=== PATIENT | female | born 1965 | race American Indian/Alaskan Native ===

== ENCOUNTER 2020-05-27 13:07 | Outpatient (CLI) | payer BC ==
--- NOTE | 2020-05-27 16:01 | XRay Report ---
CHEST 2 VIEWS INDICATION: ASTHMA. COMPARISON: 01/29/2015. FINDINGS: Support devices: None. Heart: Within normal limits. Lungs/Pleura: No acute air space or interstitial disease. No significant pleural effusion. IMPRESSION: No acute findings. Signer Name: Jere Bacon MD Signed: 05/27/2020 3:57 PM Workstation Name: [id number]
--- NOTE | 2020-05-28 10:29 | Mammography Report ---
DIGITAL SCREENING MAMMOGRAM WITH CAD, 05/27/2020 INDICATION: Routine screening mammography. TECHNIQUE: Digital bilateral 2D mammography was obtained in the craniocaudal and mediolateral obliq ue projections. This examination was interpreted with the benefit of Computer-Aided Detection analysi s. COMPARISON: None. FINDINGS: Breast Density: The breasts are heterogeneously dense, which may obscure small masses. There is no evidence of dominant mass, suspicious calcifications or architectural distortion in eithe r breast. IMPRESSION: Follow up recommendation: Routine yearly BI-RADS Category 1: Negative. A "normal" or negative report should not discourage follow up or biopsy of a clinically significant f inding. A written summary of these findings will be mailed to the patient. The patient will be entered into a mammography reporting system which will generate a reminder letter for the patient's next appointmen t at the appropriate interval. The [employer] recommends yearly mammograms starting at age 40 and continuing as l chapin as a woman is in good health. Breast MRI is recommended for women with an approximate 20-25% or greater lifetime risk of breast cancer, including women with a strong family history of breast or ova naveed cancer or who have been treated for Hodgkin's disease. Signer Name: Jere Bacon MD Signed: 05/28/2020 10:24 AM Workstation Name: [id number]
== END 2020-05-27 13:08 | disposition home or self-care (01) ==
LOC: MAMMO 13:07
DX: Z12.31 Encounter for screening mammogram for malignant neoplasm of breast (principal); J45.20 Mild intermittent asthma, uncomplicated
CPT/HCPCS: 71046; 77067

== ENCOUNTER 2021-09-30 19:01 | Observation (INO) | payer BC ==
[2021-09-30] MEDS ORDERED: ALBUTEROL 2.5 MG/3 ML NEBU IH ONE ×2 (19:28→19:29)
[2021-09-30] MEDS ORDERED: IPRATROPIUM 0.02% NEBU 2.5 ML IH ONE (19:28)
[2021-09-30] MEDS ORDERED: dexAMETHasone 20 MG/5 ML VIAL IV ONE (19:28)
[2021-09-30] MEDS ORDERED: MAGNESIUM SULFATE 2 GM/50 ML BAG IV ONE (19:28)
[2021-09-30 19:49] LABS: Basophils # (Auto) 0.1 K/mm3 (0.0-0.1); Eosinophils # (Auto) 0.4 K/mm3 (0.0-0.4); Eosinophils % (Auto) 5.2 % (0.0-4.3); Hematocrit 39.1 % (30.3-42.9); Lymphocytes # (Auto) 0.8 K/mm3 (1.2-5.4); Lymphocytes % (Auto) 10.7 % (13.4-35.0); Mean Corpuscular HGB Conc 33 % (30-34); Mean Corpuscular Volume 85 fl (79-97); Monocytes # (Auto) 0.5 K/mm3 (0.0-0.8); Monocytes % (Auto) 6.7 % (0.0-7.3); Platelet Count 236 K/mm3 (140-440); Red Blood Count 4.57 M/mm3 (3.65-5.03); Red Cell Distribution Width 14.4 % (13.2-15.2)
--- NOTE | 2021-09-30 19:53 | XRay Report ---
CHEST 1 VIEW 09/30/2021 7:28 PM INDICATION / CLINICAL INFORMATION: SOB, wheezing. COMPARISON: 05/27/2020 FINDINGS: SUPPORT DEVICES: None. HEART / MEDIASTINUM: No significant abnormality. LUNGS / PLEURA: No significant pulmonary or pleural abnormality. No pneumothorax. ADDITIONAL FINDINGS: No significant additional findings. IMPRESSION: 1. No acute findings. Signer Name: David Dan MD Signed: 09/30/2021 7:49 PM Workstation Name: [id number]
[2021-09-30 20:08] LABS: Alanine Aminotransferase 17 units/L (7-56); Albumin 4.3 g/dL (3.9-5); Blood Urea Nitrogen 7 mg/dL (7-17); Calcium 9.7 mg/dL (8.4-10.2); Hemolysis Index 8
[2021-09-30 20:14] LABS: BUN/Creatinine Ratio 10
--- NOTE | 2021-09-30 21:25 | Emergency Department Report ---
ED Asthma HPI - General Chief Complaint: Dyspnea/Respdistress Stated Complaint: ASTHMA Time Seen by Provider: 09/30/21 19:27 Source: patient Mode of arrival: Ambulatory Limitations: No Limitations - History of Present Illness Initial Comments: Patient is a 55-year-old female presents emergency room complaints of an asthma exacerbation that worsened 2 days ago. Patient states that she has had difficulty with her asthma over the last 6 months. She states that her asthma is managed by her primary care doctor and she does not see a launch engineer. She has never had to be intubated. She states that she uses an albuterol inhaler and albuterol nebulizer. She states that she has been using her medications without relief. She has associated dry cough, wheezing, shortness of breath, chest tightness. She denies any fever, vomiting, diarrhea. No allergies to medications. She states that she is a non-smoker. She denies any known sick contacts or recent travel. - Related Data Previous Rx's Medication Instructions Recorded Last Taken Type Ferrous Sulfate [Iron Supplement] 325 mg PO DAILY #30 tablet 01/29/15 Unknown Rx Tramadol HCl [traMADol] 50 mg PO Q6HR PRN #20 tablet 01/29/15 Unknown Rx Allergies Allergy/AdvReac Type Severity Reaction Status Date / Time No Known Allergies Allergy Unverified 01/28/15 15:50 ED Review of Systems ROS: Stated complaint: ASTHMA Other details as noted in HPI Comment: All other systems reviewed and negative ED Past Medical Hx - Past Medical History Previous Medical History?: Yes Hx Hypertension: Yes Hx Diabetes: Yes Hx Asthma: Yes - Surgical History Past Surgical History?: No - Social History Smoking Status: Never Smoker Substance Use Type: None - Medications Home Medications: Home Medications Medication Instructions Recorded Confirmed Last Taken Type Ferrous Sulfate [Iron Supplement] 325 mg PO DAILY #30 tablet 01/29/15 Unknown Rx Tramadol HCl [traMADol] 50 mg PO Q6HR PRN #20 tablet 01/29/15 Unknown Rx ED Physical Exam - General Limitations: No Limitations General appearance: alert - Head Head exam: Present: atraumatic, normocephalic - Eye Eye exam: Present: normal appearance - ENT ENT exam: Present: mucous membranes moist - Respiratory Respiratory exam: Present: respiratory distress (moderate), wheezes (expiratory), prolonged expiratory. Absent: rales, rhonchi, stridor, chest wall tenderness, accessory muscle use, decreased breath sounds - Cardiovascular Cardiovascular Exam: Present: normal rhythm, tachycardia - Neurological Exam Neurological exam: Present: alert, oriented X3 - Psychiatric Psychiatric exam: Present: normal affect, normal mood - Skin Skin exam: Present: warm, dry, intact ED Course Vital Signs 09/30/21 09/30/21 09/30/21 19:13 19:15 19:31 Temperature 100.3 F H Pulse Rate 111 H Respiratory 22 24 Rate Blood Pressure 187/85 O2 Sat by Pulse 90 94 97 Oximetry 09/30/21 09/30/21 09/30/21 19:45 20:01 20:15 Temperature Pulse Rate 97 H 99 H 100 H Respiratory 26 H 25 H 28 H Rate Blood Pressure 163/83 166/95 166/95 O2 Sat by Pulse 100 100 100 Oximetry 09/30/21 09/30/21 09/30/21 20:31 20:45 21:01 Temperature Pulse Rate 100 H 99 H 103 H Respiratory 27 H 26 H 21 Rate Blood Pressure 166/95 166/95 166/95 O2 Sat by Pulse 100 98 100 Oximetry 09/30/21 21:19 Temperature Pulse Rate 118 H Respiratory 36 H Rate Blood Pressure 162/90 O2 Sat by Pulse Oximetry - Reevaluation(s) Reevaluation #1: 09/30/21 21:[address] Rosario, ER attending who recommended admission - Consultations Consultation #1: 09/30/21 21:[address] Arias, hospitalist who will accept and resume care of patient, will admit to hospital service ED Medical Decision Making - Lab Data Result diagrams: 09/30/21 19:37 09/30/21 19:37 Lab Results 09/30/21 09/30/21 Range/Units 19:37 19:37 WBC 7.4 (4.5-11.0) K/mm3 RBC 4.57 (3.65-5.03) M/mm3 Hgb 13.0 (10.1-14.3) gm/dl Hct 39.1 (30.3-42.9) % MCV 85 (79-97) fl MCH 29 (28-32) pg MCHC 33 (30-34) % RDW 14.4 (13.2-15.2) % Plt Count 236 (140-440) K/mm3 Lymph % (Auto) 10.7 L (13.4-35.0) % [place] % (Auto) 6.7 (0.0-7.3) % Eos % (Auto) 5.2 H (0.0-4.3) % Baso % (Auto) 1.0 (0.0-1.8) % Lymph # (Auto) 0.8 L (1.2-5.4) K/mm3 [place] # (Auto) 0.5 (0.0-0.8) K/mm3 Eos # (Auto) 0.4 (0.0-0.4) K/mm3 Baso # (Auto) 0.1 (0.0-0.1) K/mm3 Seg Neutrophils % 76.4 H (40.0-70.0) % Seg Neutrophils # 5.6 (1.8-7.7) K/mm3 Sodium 137 (137-145) mmol/L Potassium 3.8 (3.6-5.0) mmol/L Chloride 102.5 (98-107) mmol/L Carbon Dioxide 20 L (22-30) mmol/L Anion Gap 18 mmol/L BUN 7 (7-17) mg/dL Creatinine 0.7 (0.6-1.2) mg/dL Estimated GFR > 60 ml/min BUN/Creatinine Ratio 10 % Glucose 158 H (65-100) mg/dL Calcium 9.7 (8.4-10.2) mg/dL Total Bilirubin 0.30 (0.1-1.2) mg/dL AST 17 (5-40) units/L ALT 17 (7-56) units/L Alkaline Phosphatase 110 (35-129) units/L Total Protein 7.8 (6.3-8.2) g/dL Albumin 4.3 (3.9-5) g/dL Albumin/Globulin Ratio 1.2 % - Radiology Data Radiology results: report reviewed Ordering Physician: AMEE HASTINGS Date of Service: 09/30/21 Procedure(s): XR chest 1V ap Accession Number(s): [id number] cc: AMEE HASTINGS Fluoro Time In Minutes: CHEST 1 VIEW 09/30/2021 7:28 PM INDICATION / CLINICAL INFORMATION: SOB, wheezing. COMPARISON: 05/27/2020 FINDINGS: SUPPORT DEVICES: None. HEART / MEDIASTINUM: No significant abnormality. LUNGS / PLEURA: No significant pulmonary or pleural abnormality. No pneumothorax. ADDITIONAL FINDINGS: No significant additional findings. IMPRESSION: 1. No acute findings. Signer Name: David Dan MD Signed: 09/30/2021 7:49 PM Workstation Name: [id number] Transcribed By: PIA Dictated By: ORESTES DAN MD Electronically Authenticated By: ORESTES DAN MD Signed Date/Time: 09/30/211948 DD/ 48 TD/TT: - Medical Decision Making Patient is a 55-year-old female presents emergency room complaints of an asthma exacerbation that worsened 2 days ago. Patient states that she has had difficulty with her asthma over the last 6 months. She states that her asthma is managed by her primary care doctor and she does not see a launch engineer. She has never had to be intubated. She states that she uses an albuterol inhaler and albuterol nebulizer. She states that she has been using her medications without relief. She has associated dry cough, wheezing, shortness of breath, chest tightness. She denies any fever, vomiting, diarrhea. No allergies to medications. She states that she is a non-smoker. She denies any known sick contacts or recent travel. Initial vitals with mild low-grade temperature, on repeat her temperature is normal. Vitals with hypoxia at 90%, patient placed on 3 L and oxygen improved to 94%. On exam patient is in moderate respiratory distress with wheezing and prolonged expiratory phase. Labs are stable. Chest x- ray 1. No acute findings. Patient given continuous neb treatment, steroids, magnesium. On reexamination patient states that she continues to feel short of breath and she continues to have wheezing throughout. Patient was ambulated in the emergency department and her oxygen dropped to 90% on room air. Discussed case with Dr. Rosario, ER attending who recommended admission. Spoke to Dr. Arias, hospitalist who will accept and resume care of patient, will admit to hospital service. Patient will be admitted for status asthmaticus and hypoxia. Discussed all findings with patient and she is agreeable with admission. Critical Care Time: Yes Critical care time in (mins) excluding proc time.: 30 Critical care attestation.: If time is entered above; I have spent that time in minutes in the direct care of this critically ill patient, excluding procedure time. Critical Care Time: Critical care time includes multiple reexaminations, interpretation of labora tory and diagnostic studies, consultations ED Disposition Clinical Impression: Status asthmaticus Qualifiers: Asthma severity: unspecified severity Asthma persistence: unspecified Qualified Code(s): J45.902 - Unspecified asthma with status asthmaticus Acute respiratory failure Qualifiers: Respiratory failure complication: hypoxia Qualified Code(s): J96.01 - Acute respiratory failure with hypoxia Disposition: 02 [facility]ORT [facility] Is pt being admited?: Yes Does the pt Need Aspirin: No Condition: Serious Time of Disposition: 21:42 Print Language: [place]
[2021-09-30] MEDS ORDERED: ALBUTEROL 2.5 MG/3 ML NEBU IH PRN (22:07)
[2021-09-30] MEDS ORDERED: oxyCODONE /ACETAMINOPHEN 5-325MG TAB PO PRN (22:07)
[2021-09-30] MEDS ORDERED: DEXTROSE 50% IN WATER (25GM) 50 ML SYRINGE IV PRN (22:07)
[2021-09-30] MEDS ORDERED: ONDANSETRON 4 MG/2 ML INJ IV PRN (22:07)
[2021-09-30] MEDS ORDERED: HYDROmorphone 1 MG/1 ML INJ IV PRN (22:07)
[2021-09-30] MEDS ORDERED: ACETAMINOPHEN 325 MG TAB PO PRN (22:07)
[2021-09-30] MEDS ORDERED: traMADol 50 MG TAB PO PRN (22:10)
--- NOTE | 2021-09-30 22:15 | History and Physical Report ---
History of Present Illness Date of examination: 09/30/21 Date of admission: 09/30/21 Chief complaint: Shortness of breath Asthma exacerbation History of present illness: 55-year-old female with history of asthma and diabetes was brought to the emergency room because of progressive shortness of breath for the last 2 days. Patient states that she has had difficulty with her asthma over the last 6 months. She states that her asthma is managed by her primary care doctor and she does not see a cage loader. She has never had to be intubated. She states that she uses an albuterol inhaler and albuterol nebulizer. She states that she has been using her medications without relief. She has associated dry cough, wheezing, shortness of breath, chest tightness. She denies any fever, vomiting, diarrhea. No allergies to medications. She states that she is a non- smoker. In the emergency room patient is found to have acute asthma exacerbation we will going to admit the patient , put the patient on neb treatment Solu-Medrol antibiotic and singular Med rec is done Past History Past Medical History: diabetes (Asthma), other Medications and Allergies Allergies Allergy/AdvReac Type Severity Reaction Status Date / Time No Known Allergies Allergy Unverified 01/28/15 15:50 Home Medications Medication Instructions Recorded Confirmed Last Taken Type Ferrous Sulfate [Iron Supplement] 325 mg PO DAILY #30 tablet 01/29/15 Unknown Rx Tramadol HCl [traMADol] 50 mg PO Q6HR PRN #20 tablet 01/29/15 Unknown Rx Review of Systems All systems: negative Cardiovascular: shortness of breath, dyspnea on exertion Respiratory: shortness of breath, dyspnea on exertion, wheezing Exam - Constitutional Vitals: Temp Pulse Resp BP Pulse Ox 100.3 F H 118 H 36 H 162/90 100 09/30/21 19:13 09/30/21 21:19 09/30/21 21:19 09/30/21 21:19 09/30/21 21:01 General appearance: Present: no acute distress, well-nourished - EENT Eyes: Present: PERRL ENT: hearing intact, clear oral mucosa - Neck Neck: Present: supple, normal ROM - Respiratory Respiratory effort: normal Respiratory: bilateral: wheezing - Cardiovascular Heart Sounds: Present: S1 & S2. Absent: rub, click - Extremities Extremities: pulses symmetrical, No edema Peripheral Pulses: within normal limits - Abdominal General gastrointestinal: Present: soft, non-tender, non-distended, normal bowel sounds Female genitourinary: Present: normal - Integumentary Integumentary: Present: clear, warm, dry - Musculoskeletal Musculoskeletal: gait normal, strength equal bilaterally - Psychiatric Psychiatric: appropriate mood/affect, intact judgment & insight - Neurologic Neurologic: CNII-XII intact, moves all extremities Results - Labs CBC & Chem 7: 09/30/21 19:37 09/30/21 19:37 Labs: Laboratory Last Values WBC 7.4 K/mm3 (4.5-11.0) 09/30/21 19:37 RBC 4.57 M/mm3 (3.65-5.03) 09/30/21 19:37 Hgb 13.0 gm/dl (10.1-14.3) 09/30/21 19:37 Hct 39.1 % (30.3-42.9) 09/30/21 19:37 MCV 85 fl (79-97) 09/30/21 19:37 MCH 29 pg (28-32) 09/30/21 19:37 MCHC 33 % (30-34) 09/30/21 19:37 RDW 14.4 % (13.2-15.2) 09/30/21 19:37 Plt Count 236 K/mm3 (140-440) 09/30/21 19:37 Lymph % (Auto) 10.7 % (13.4-35.0) L 09/30/21 19:37 [place] % (Auto) 6.7 % (0.0-7.3) 09/30/21 19:37 Eos % (Auto) 5.2 % (0.0-4.3) H 09/30/21 19:37 Baso % (Auto) 1.0 % (0.0-1.8) 09/30/21 19:37 Lymph # (Auto) 0.8 K/mm3 (1.2-5.4) L 09/30/21 19:37 [place] # (Auto) 0.5 K/mm3 (0.0-0.8) 09/30/21 19:37 Eos # (Auto) 0.4 K/mm3 (0.0-0.4) 09/30/21 19:37 Baso # (Auto) 0.1 K/mm3 (0.0-0.1) 09/30/21 19:37 Seg Neutrophils % 76.4 % (40.0-70.0) H 09/30/21 19:37 Seg Neutrophils # 5.6 K/mm3 (1.8-7.7) 09/30/21 19:37 Sodium 137 mmol/L (137-145) 09/30/21 19:37 Potassium 3.8 mmol/L (3.6-5.0) 09/30/21 19:37 Chloride 102.5 mmol/L (98-107) 09/30/21 19:37 Carbon Dioxide 20 mmol/L (22-30) L 09/30/21 19:37 Anion Gap 18 mmol/L 09/30/21 19:37 BUN 7 mg/dL (7-17) 09/30/21 19:37 Creatinine 0.7 mg/dL (0.6-1.2) 09/30/21 19:37 Estimated GFR > 60 ml/min 09/30/21 19:37 BUN/Creatinine Ratio 10 % 09/30/21 19:37 Glucose 158 mg/dL (65-100) H 09/30/21 19:37 Calcium 9.7 mg/dL (8.4-10.2) 09/30/21 19:37 Total Bilirubin 0.30 mg/dL (0.1-1.2) 09/30/21 19:37 AST 17 units/L (5-40) 09/30/21 19:37 ALT 17 units/L (7-56) 09/30/21 19:37 Alkaline Phosphatase 110 units/L (35-129) 09/30/21 19:37 Total Protein 7.8 g/dL (6.3-8.2) 09/30/21 19:37 Albumin 4.3 g/dL (3.9-5) 09/30/21 19:37 Albumin/Globulin Ratio 1.2 % 09/30/21 19:37 - Imaging and Cardiology Chest x-ray: report reviewed Assessment and Plan VTE prophylaxis?: Chemical Plan of care discussed with patient/family: Yes - Patient Problems (1) Acute respiratory failure Status: Acute Qualifiers: Respiratory failure complication: hypoxia Qualified Code(s): J96.01 - Acute respiratory failure with hypoxia Plan to address problem: Admit the patient to the medical floor. Oxygen via nasal cannula 3 L/min. DuoNeb by nebulizer every 4 hours. Albuterol via nebulizer every 4 hours as needed. Solu-Medrol 40 mg IV every 6 hours. Singular 10 mg p.o. daily. Zithromax to 50 mg p.o. daily. We do the blood culture and sputum culture. Recheck CBC BMP in the morning. If needed will consult pulmonary (2) Status asthmaticus Status: Acute Qualifiers: Asthma severity: unspecified severity Asthma persistence: unspecified Qualified Code(s): J45.902 - Unspecified asthma with status asthmaticus Plan to address problem: Oxygen via nasal cannula 3 L/min. DuoNeb by nebulizer every 4 hours. Albuterol via nebulizer every 4 hours as needed. Solu-Medrol 40 mg IV every 6 hours. Singular 10 mg p.o. daily. Zithromax to 50 mg p.o. daily. We do the blood culture and sputum culture. Recheck CBC BMP in the morning. If needed will consult pulmonary (3) Diabetes Status: Acute Plan to address problem: 1800 kcal ADA diet. Humalog sliding scale with Accu-Chek before meals and Hs with high sliding scale. Diabetic education. Recheck BMP in the morning. (4) DVT prophylaxis Status: Acute Plan to address problem: Heparin 5000 units subcu every 8 hours for DVT prophylaxis. Pepcid 20 mg p.o. twice daily for GI prophylaxis. Patient is a full code
[2021-10-01] MEDS: methylPREDNISolone Sod Succinate 40 MG/1 ML INJ IV SCH ×5 (00:18→22:37)
[2021-10-01] MEDS ORDERED: IPRATROPIUM/ALBUTEROL SULFATE 3 ML AMPUL.NEB IH SCH (02:00)
[2021-10-01] MEDS: HEPARIN 5,000 UNIT/1 ML VIAL SUB-Q SCH ×3 (05:49→22:37)
--- NOTE | 2021-10-01 09:06 | Progress Note ---
Assessment and Plan Assessment and plan: -- Acute respiratory failure Status: Acute Oxygen titrate O2 sats to more than 90%, requiring 3 L of nasal cannula oxygen Nebulizers, IV steroids, IV antibiotics, supportive correction O2 evaluation at discharge --Acute exacerbation of bronchial asthma . Status: Acute Oxygen via nasal cannula 3 L/min. DuoNeb, tapering dose of steroids Empiric antibiotics, inhalation steroids, cough medicine Supportive care, pulmonary consult if needed --Type II diabetes abetes Status: Acute Accu-Chek, sliding scale coverage, ADA diet, A1c 10.4 Had 70/30 Novolin insulin twice daily dose, adjust dose as needed Diabetic education. Nutrition education Possible home health nurse for disease monitoring at discharge --Hyponatremia/pseudohyponatremia; Due to hyperglycemia As the sugars improve sodium levels will improve Closely monitor electrolytes -- DVT prophylaxis Heparin 5000 units subcu every 8 hours for DVT prophylaxis. Pepcid 20 mg p.o. twice daily for GI prophylaxis. Patient is a full code We will closely monitor the patient and adjust management as needed Plan of care reviewed with the patient and her nurse DC planning; home O2 evaluation, home health nurse for disease monitoring 10/01: Uncontrolled blood sugars Novolin 70/30, started, monitor blood sugars increase as needed Home O2 evaluation History Interval history: I have seen and examined the patient at the bedside Patient's chart and medications reviewed No new events reported by the nursing Admitted with acute exacerbation of bronchial asthma On 2 L of nasal cannula oxygen Patient complains of worsening wheezing and shortness of breath Hospitalist Physical - Constitutional Vitals: Temp Pulse Resp BP Pulse Ox 97.7 F 87 16 128/75 94 10/01/21 04:40 10/01/21 04:40 10/01/21 04:40 10/01/21 04:40 10/01/21 05:16 General appearance: Present: mild distress, well-nourished - EENT Eyes: Present: PERRL, EOM intact - Neck Neck: Present: supple, normal ROM - Respiratory Respiratory effort: normal Respiratory: bilateral: diminished, rhonchi, negative: rales, wheezing - Cardiovascular Rhythm: regular Heart Sounds: Present: S1 & S2 - Extremities Extremities: no ischemia, No edema - Abdominal General gastrointestinal: soft, non-tender, non-distended, normal bowel sounds - Integumentary Integumentary: Present: clear, warm - Psychiatric Psychiatric: appropriate mood/affect, cooperative - Neurologic Neurologic: CNII-XII intact, moves all extremities Results - Labs CBC & Chem 7: 10/01/21 09:49 10/01/21 09:49 Labs: Laboratory Last Values WBC 7.4 K/mm3 (4.5-11.0) 09/30/21 19:37 RBC 4.57 M/mm3 (3.65-5.03) 09/30/21 19:37 Hgb 13.0 gm/dl (10.1-14.3) 09/30/21 19:37 Hct 39.1 % (30.3-42.9) 09/30/21 19:37 MCV 85 fl (79-97) 09/30/21 19:37 MCH 29 pg (28-32) 09/30/21 19:37 MCHC 33 % (30-34) 09/30/21 19:37 RDW 14.4 % (13.2-15.2) 09/30/21 19:37 Plt Count 236 K/mm3 (140-440) 09/30/21 19:37 Lymph % (Auto) 10.7 % (13.4-35.0) L 09/30/21 19:37 [place] % (Auto) 6.7 % (0.0-7.3) 09/30/21 19:37 Eos % (Auto) 5.2 % (0.0-4.3) H 09/30/21 19:37 Baso % (Auto) 1.0 % (0.0-1.8) 09/30/21 19:37 Lymph # (Auto) 0.8 K/mm3 (1.2-5.4) L 09/30/21 19:37 [place] # (Auto) 0.5 K/mm3 (0.0-0.8) 09/30/21 19:37 Eos # (Auto) 0.4 K/mm3 (0.0-0.4) 09/30/21 19:37 Baso # (Auto) 0.1 K/mm3 (0.0-0.1) 09/30/21 19:37 Seg Neutrophils % 76.4 % (40.0-70.0) H 09/30/21 19:37 Seg Neutrophils # 5.6 K/mm3 (1.8-7.7) 09/30/21 19:37 ABG pH 7.503 (7.320-7.450) H 09/30/21 21:57 POC ABG pCO2 26.5 mmHg (32.0-48.0) L 09/30/21 21:57 POC ABG pO2 116.0 mmHg (83-108) H 09/30/21 21:57 POC ABG HCO3 20.3 09/30/21 21:57 ABG O2 Saturation 98.7 (0-100) 09/30/21 21:57 POC ABG Base Excess -1.4 09/30/21 21:57 ABG Hemoglobin 13.1 (12.0-17.5) 09/30/21 21:57 ABG Oxyhemoglobin 98.2 (94-98) H 09/30/21 21:57 ABG Methemoglobin 0.3 (0.0-1.5) 09/30/21 21:57 ABG Sodium 173.1 mmol/L (136.0-145.0) H 09/30/21 21:57 ABG Potassium 4.4 mmol/L (3.40-4.50) 09/30/21 21:57 ABG Chloride 108.0 mmol/L (98-107) H 09/30/21 21:57 ABG Glucose 171 mg/dL (65-95) H 09/30/21 21:57 Carboxyhemoglobin 0.2 (0.5-1.5) L 09/30/21 21:57 FiO2 % 21 09/30/21 21:57 Sodium 137 mmol/L (137-145) 09/30/21 19:37 Potassium 3.8 mmol/L (3.6-5.0) 09/30/21 19:37 Chloride 102.5 mmol/L (98-107) 09/30/21 19:37 Carbon Dioxide 20 mmol/L (22-30) L 09/30/21 19:37 Anion Gap 18 mmol/L 09/30/21 19:37 BUN 7 mg/dL (7-17) 09/30/21 19:37 Creatinine 0.7 mg/dL (0.6-1.2) 09/30/21 19:37 Estimated GFR > 60 ml/min 09/30/21 19:37 BUN/Creatinine Ratio 10 % 09/30/21 19:37 Glucose 158 mg/dL (65-100) H 09/30/21 19:37 POC Glucose 245 mg/dL (70-105) H 10/01/21 08:02 Calcium 9.7 mg/dL (8.4-10.2) 09/30/21 19:37 Total Bilirubin 0.30 mg/dL (0.1-1.2) 09/30/21 19:37 AST 17 units/L (5-40) 09/30/21 19:37 ALT 17 units/L (7-56) 09/30/21 19:37 Alkaline Phosphatase 110 units/L (35-129) 09/30/21 19:37 Total Protein 7.8 g/dL (6.3-8.2) 09/30/21 19:37 Albumin 4.3 g/dL (3.9-5) 09/30/21 19:37 Albumin/Globulin Ratio 1.2 % 09/30/21 19:37 Arterial Blood Glucose 171 mg/dL (65-95) H 09/30/21 21:57 Yoon/IV: Voiding Method Toilet Active Medications - Current Medications Current Medications: Generic Name Dose Route Start Last Admin Trade Name Freq PRN Reason Stop Dose Admin Acetaminophen 650 mg 09/30/21 22:07 10/01/21 00:02 Acetaminophen 325 Mg Tab PO 650 mg Q4H PRN Administration Pain MILD(1-3)/Fever >100.5/QUIROGA Albuterol 2.5 mg 09/30/21 22:07 Albuterol 2.5 Mg/3 Ml Nebu IH Q4HRT PRN Shortness Of Breath Albuterol/Ipratropium 1 ampul 10/01/21 08:00 Ipratropium/Albuterol Sulfate 3 Ml Ampul.Neb IH TIDRT KIKE Dextrose 0 ml 09/30/21 22:07 Dextrose 50% In Water (25gm) 50 Ml Syringe IV Q30MIN PRN Hypoglycemia Protocol Famotidine 20 mg 10/01/21 10:00 Famotidine 20 Mg Tab PO BID KIKE Ferrous Sulfate 325 mg 10/01/21 10:00 Ferrous Sulfate 325 Mg Tab PO DAILY KIKE Heparin Sodium (Porcine) 5,000 unit 10/01/21 06:00 10/01/21 05:49 Heparin 5,000 Unit/1 Ml Vial SUB-Q 5,000 unit Q8HR KIKE Administration Hydromorphone HCl 0.5 mg 09/30/21 22:07 Hydromorphone 1 Mg/1 Ml Inj IV Q3H PRN Pain , Severe (7-10) Insulin Human Lispro 0 unit 10/01/21 07:30 Insulin Lispro 100 Unit/Ml SUB-Q ACHS [facility] Protocol Methylprednisolone Sodium Succinate 40 mg 10/01/21 00:00 10/01/21 05:49 Methylprednisolone Sod Succinate 40 Mg/1 Ml Inj IV 40 mg Q6HR KIKE Administration Montelukast Sodium 10 mg 10/01/21 22:00 Montelukast 10 Mg Tab PO QHS [facility] Ondansetron HCl 4 mg 09/30/21 22:07 Ondansetron 4 Mg/2 Ml Inj IV Q8H PRN Nausea And Vomiting Oxycodone/Acetaminophen 1 tab 09/30/21 22:07 Oxycodone /Acetaminophen 5-325mg Tab PO Q6H PRN Pain, Moderate (4-6) Sodium Chloride 10 ml 10/01/21 10:00 Sodium Chloride 0.9% 10 Ml Flush Syringe IV BID KIKE Sodium Chloride 10 ml 09/30/21 22:07 Sodium Chloride 0.9% 10 Ml Flush Syringe IV PRN PRN LINE FLUSH Tramadol HCl 50 mg 09/30/21 22:10 Tramadol 50 Mg Tab PO Q6H PRN PAIN (1-3)
[2021-10-01] MEDS: INSULIN LISPRO 100 UNIT/ML SUB-Q SCH ×4 (09:26→22:38)
[2021-10-01] MEDS: FERROUS SULFATE 325 MG TAB PO SCH (09:27)
[2021-10-01] MEDS: FAMOTIDINE 20 MG TAB PO SCH ×2 (09:27→22:37)
[2021-10-01 10:58] LABS: Hematocrit 38.3 % (30.3-42.9); Hemoglobin 12.8 gm/dl (10.1-14.3); Mean Corpuscular HGB Conc 33 % (30-34); Mean Corpuscular Volume 85 fl (79-97); Platelet Count 241 K/mm3 (140-440); Red Blood Count 4.53 M/mm3 (3.65-5.03); Red Cell Distribution Width 14.3 % (13.2-15.2)
[2021-10-01] MEDS: IPRATROPIUM/ALBUTEROL SULFATE 3 ML AMPUL.NEB IH SCH ×3 (11:11→20:10)
[2021-10-01 13:14] LABS: Blood Urea Nitrogen 10 mg/dL (7-17); Calcium 10.4 mg/dL (8.4-10.2); Hemolysis Index 5
[2021-10-01 13:17] LABS: BUN/Creatinine Ratio 14
[2021-10-01 16:01] LABS: Band Neutrophils # (Manual) 0.1 K/mm3; Total Cells Counted 100
[2021-10-01 16:02] LABS: Platelet Estimate Consistent w Auto; RBC Morphology Normal
[2021-10-01] MEDS ORDERED: INSULIN NPH/REGULAR 70/30 INJ SUB-Q NR (18:00)
[2021-10-01] MEDS: BUDESONIDE 0.5 MG/2 ML NEBU IH SCH (20:09)
[2021-10-01] MEDS: ARFORMOTEROL 15 MCG/2 ML NEBU IH SCH (20:09)
[2021-10-01] MEDS: MONTELUKAST 10 MG TAB PO SCH (22:37)
[2021-10-02] MEDS: methylPREDNISolone Sod Succinate 40 MG/1 ML INJ IV SCH ×4 (00:07→18:34)
[2021-10-02] MEDS: HEPARIN 5,000 UNIT/1 ML VIAL SUB-Q SCH ×3 (05:08→22:05)
[2021-10-02] MEDS: INSULIN LISPRO 100 UNIT/ML SUB-Q SCH ×4 (08:44→22:05)
[2021-10-02] MEDS: INSULIN NPH/REGULAR 70/30 INJ SUB-Q SCH ×2 (08:44→18:29)
[2021-10-02] MEDS: FERROUS SULFATE 325 MG TAB PO SCH (09:47)
[2021-10-02] MEDS: FAMOTIDINE 20 MG TAB PO SCH ×2 (09:47→22:05)
[2021-10-02] MEDS: BUDESONIDE 0.5 MG/2 ML NEBU IH SCH ×2 (10:02→21:31)
[2021-10-02] MEDS: ARFORMOTEROL 15 MCG/2 ML NEBU IH SCH ×2 (10:02→21:31)
--- NOTE | 2021-10-02 15:04 | Progress Note ---
Assessment and Plan Assessment and plan: -- Acute respiratory failure Status: Acute Oxygen titrate O2 sats to more than 90%, requiring 3 L of nasal cannula oxygen Nebulizers, IV steroids, IV antibiotics, supportive custodial O2 evaluation at discharge --Acute exacerbation of bronchial asthma . Status: Acute Oxygen via nasal cannula 3 L/min. DuoNeb, tapering dose of steroids Empiric antibiotics, inhalation steroids, cough medicine Tapering dose of steroids, pulmonary consult if needed --Type II diabetes abetes Status: Acute Accu-Chek, sliding scale coverage, ADA diet, A1c 10.4 Had 70/30 Novolin insulin twice daily dose, adjust dose as needed Diabetic education. Nutrition education Possible home health nurse for disease monitoring at discharge --Hyponatremia/pseudohyponatremia; Due to hyperglycemia As the sugars improve sodium levels will improve Closely monitor electrolytes -- DVT prophylaxis Heparin 5000 units subcu every 8 hours for DVT prophylaxis. Pepcid 20 mg p.o. twice daily for GI prophylaxis. Patient is a full code We will closely monitor the patient and adjust management as needed Plan of care reviewed with the patient and her nurse DC planning; home O2 evaluation, home health nurse for disease monitoring 10/01: Uncontrolled blood sugars Novolin 70/30, started, monitor blood sugars increase as needed Home O2 evaluation 10/02; patient's blood sugars are reasonable control today However still has bilateral wheeze and shortness of breath Tapering dose of steroids, home O2 evaluation prior to discharge History Interval history: I have seen and examined the patient at the bedside this morning during rounds Patient's chart and medications reviewed Patient feels slightly better still has some shortness of breath and wheeze Requiring supplemental oxygen 2 L of nasal cannula Hospitalist Physical - Constitutional Vitals: Temp Pulse Resp BP Pulse Ox 97.8 F 71 22 126/72 100 10/02/21 12:59 10/02/21 12:59 10/02/21 12:59 10/02/21 12:59 10/02/21 12:59 General appearance: Present: mild distress, well-nourished - EENT Eyes: Present: PERRL, EOM intact - Neck Neck: Present: supple, normal ROM - Respiratory Respiratory effort: normal Respiratory: bilateral: diminished, wheezing, negative: rales, rhonchi - Cardiovascular Rhythm: regular Heart Sounds: Present: S1 & S2 - Extremities Extremities: no ischemia, No edema - Abdominal General gastrointestinal: soft, non-tender, non-distended, normal bowel sounds - Integumentary Integumentary: Present: clear, warm - Psychiatric Psychiatric: appropriate mood/affect, cooperative - Neurologic Neurologic: CNII-XII intact, moves all extremities Results - Labs CBC & Chem 7: 10/01/21 09:49 10/01/21 09:49 Labs: Laboratory Last Values WBC 8.8 K/mm3 (4.5-11.0) 10/01/21 09:49 RBC 4.53 M/mm3 (3.65-5.03) 10/01/21 09:49 Hgb 12.8 gm/dl (10.1-14.3) 10/01/21 09:49 Hct 38.3 % (30.3-42.9) 10/01/21 09:49 MCV 85 fl (79-97) 10/01/21 09:49 MCH 28 pg (28-32) 10/01/21 09:49 MCHC 33 % (30-34) 10/01/21 09:49 RDW 14.3 % (13.2-15.2) 10/01/21 09:49 Plt Count 241 K/mm3 (140-440) 10/01/21 09:49 Lymph % (Auto) 10.7 % (13.4-35.0) L 09/30/21 19:37 Cross % (Auto) 6.7 % (0.0-7.3) 09/30/21 19:37 Eos % (Auto) 5.2 % (0.0-4.3) H 09/30/21 19:37 Baso % (Auto) 1.0 % (0.0-1.8) 09/30/21 19:37 Lymph # (Auto) 0.8 K/mm3 (1.2-5.4) L 09/30/21 19:37 Cross # (Auto) 0.5 K/mm3 (0.0-0.8) 09/30/21 19:37 Eos # (Auto) 0.4 K/mm3 (0.0-0.4) 09/30/21 19:37 Baso # (Auto) 0.1 K/mm3 (0.0-0.1) 09/30/21 19:37 Add Manual Diff Complete 10/01/21 09:49 Total Counted 100 10/01/21 09:49 Seg Neutrophils % [employer] 10/01/21 09:49 Seg Neuts % (Manual) 85.0 % (40.0-70.0) H 10/01/21 09:49 Band Neutrophils % 1.0 % 10/01/21 09:49 Lymphocytes % (Manual) 13.0 % (13.4-35.0) L 10/01/21 09:49 Monocytes % (Manual) 1.0 % (0.0-7.3) 10/01/21 09:49 Nucleated RBC % Not Reportable 10/01/21 09:49 Seg Neutrophils # 5.6 K/mm3 (1.8-7.7) 09/30/21 19:37 Seg Neutrophils # Man 7.5 K/mm3 (1.8-7.7) 10/01/21 09:49 Band Neutrophils # 0.1 K/mm3 10/01/21 09:49 Lymphocytes # (Manual) 1.1 K/mm3 (1.2-5.4) L 10/01/21 09:49 Abs React Lymphs (Man) 0.0 K/mm3 10/01/21 09:49 Monocytes # (Manual) 0.1 K/mm3 (0.0-0.8) 10/01/21 09:49 Eosinophils # (Manual) 0.0 K/mm3 (0.0-0.4) 10/01/21 09:49 Basophils # (Manual) 0.0 K/mm3 (0.0-0.1) 10/01/21 09:49 Metamyelocytes # 0.0 K/mm3 10/01/21 09:49 Myelocytes # 0.0 K/mm3 10/01/21 09:49 Promyelocytes # 0.0 K/mm3 10/01/21 09:49 Blast Cells # 0.0 K/mm3 10/01/21 09:49 WBC Morphology Not Reportable 10/01/21 09:49 Hypersegmented Neuts Not Reportable 10/01/21 09:49 Hyposegmented Neuts Not Reportable 10/01/21 09:49 Hypogranular Neuts Not Reportable 10/01/21 09:49 Smudge Cells Not Reportable 10/01/21 09:49 Toxic Granulation Not Reportable 10/01/21 09:49 Toxic Vacuolation Not Reportable 10/01/21 09:49 Dohle Bodies Not Reportable 10/01/21 09:49 Pelger-Huet Anomaly Not Reportable 10/01/21 09:49 Linwood Rods Not Reportable 10/01/21 09:49 Platelet Estimate Consistent w auto 10/01/21 09:49 Clumped Platelets Not Reportable 10/01/21 09:49 Plt Clumps, EDTA Not Reportable 10/01/21 09:49 Large Platelets Not Reportable 10/01/21 09:49 Giant Platelets Not Reportable 10/01/21 09:49 Platelet Satelliting Not Reportable 10/01/21 09:49 Plt Morphology Comment Not Reportable 10/01/21 09:49 RBC Morphology Normal 10/01/21 09:49 Dimorphic RBCs Not Reportable 10/01/21 09:49 Polychromasia Not Reportable 10/01/21 09:49 Hypochromasia Not Reportable 10/01/21 09:49 Poikilocytosis Not Reportable 10/01/21 09:49 Anisocytosis Not Reportable 10/01/21 09:49 Microcytosis Not Reportable 10/01/21 09:49 Macrocytosis Not Reportable 10/01/21 09:49 Spherocytes Not Reportable 10/01/21 09:49 Pappenheimer Bodies Not Reportable 10/01/21 09:49 Sickle Cells Not Reportable 10/01/21 09:49 Target Cells Not Reportable 10/01/21 09:49 Tear Drop Cells Not Reportable 10/01/21 09:49 Ovalocytes Not Reportable 10/01/21 09:49 Helmet Cells Not Reportable 10/01/21 09:49 Giraldo-Murdock Bodies Not Reportable 10/01/21 09:49 [place] Rings Not Reportable 10/01/21 09:49 [employer] Cells Not Reportable 10/01/21 09:49 Bite Cells Not Reportable 10/01/21 09:49 Crenated Cell Not Reportable 10/01/21 09:49 Elliptocytes Not Reportable 10/01/21 09:49 Acanthocytes (Spur) Not Reportable 10/01/21 09:49 Rouleaux Not Reportable 10/01/21 09:49 Hemoglobin C Crystals Not Reportable 10/01/21 09:49 Schistocytes Not Reportable 10/01/21 09:49 Malaria parasites Not Reportable 10/01/21 09:49 Compa Bodies Not Reportable 10/01/21 09:49 Hem Pathologist Commnt No 10/01/21 09:49 ABG pH 7.503 (7.320-7.450) H 09/30/21 21:57 POC ABG pCO2 26.5 mmHg (32.0-48.0) L 09/30/21 21:57 POC ABG pO2 116.0 mmHg (83-108) H 09/30/21 21:57 POC ABG HCO3 20.3 09/30/21 21:57 ABG O2 Saturation 98.7 (0-100) 09/30/21 21:57 POC ABG Base Excess -1.4 09/30/21 21:57 ABG Hemoglobin 13.1 (12.0-17.5) 09/30/21 21:57 ABG Oxyhemoglobin 98.2 (94-98) H 09/30/21 21:57 ABG Methemoglobin 0.3 (0.0-1.5) 09/30/21 21:57 ABG Sodium 173.1 mmol/L (136.0-145.0) H 09/30/21 21:57 ABG Potassium 4.4 mmol/L (3.40-4.50) 09/30/21 21:57 ABG Chloride 108.0 mmol/L (98-107) H 09/30/21 21:57 ABG Glucose 171 mg/dL (65-95) H 09/30/21 21:57 Carboxyhemoglobin 0.2 (0.5-1.5) L 09/30/21 21:57 FiO2 % 21 09/30/21 21:57 Sodium 135 mmol/L (137-145) L 10/01/21 09:49 Potassium 4.5 mmol/L (3.6-5.0) 10/01/21 09:49 Chloride 99.5 mmol/L (98-107) 10/01/21 09:49 Carbon Dioxide 21 mmol/L (22-30) L 10/01/21 09:49 Anion Gap 19 mmol/L 10/01/21 09:49 BUN 10 mg/dL (7-17) 10/01/21 09:49 Creatinine 0.7 mg/dL (0.6-1.2) 10/01/21 09:49 Estimated GFR > 60 ml/min 10/01/21 09:49 BUN/Creatinine Ratio 14 % 10/01/21 09:49 Glucose 325 mg/dL (65-100) H 10/01/21 09:49 POC Glucose 295 mg/dL (70-105) H 10/02/21 12:27 Calcium 10.4 mg/dL (8.4-10.2) H 10/01/21 09:49 Total Bilirubin 0.30 mg/dL (0.1-1.2) 09/30/21 19:37 AST 17 units/L (5-40) 09/30/21 19:37 ALT 17 units/L (7-56) 09/30/21 19:37 Alkaline Phosphatase 110 units/L (35-129) 09/30/21 19:37 Total Protein 7.8 g/dL (6.3-8.2) 09/30/21 19:37 Albumin 4.3 g/dL (3.9-5) 09/30/21 19:37 Albumin/Globulin Ratio 1.2 % 09/30/21 19:37 Arterial Blood Glucose 171 mg/dL (65-95) H 09/30/21 21:57 Yoon/IV: Voiding Method Toilet Active Medications - Current Medications Current Medications: Generic Name Dose Route Start Last Admin Trade Name Freq PRN Reason Stop Dose Admin Acetaminophen 650 mg 09/30/21 22:07 10/01/21 00:02 Acetaminophen 325 Mg Tab PO 650 mg Q4H PRN Administration Pain MILD(1-3)/Fever >100.5/QUIROGA Albuterol 2.5 mg 09/30/21 22:07 Albuterol 2.5 Mg/3 Ml Nebu IH Q4HRT PRN Shortness Of Breath Albuterol/Ipratropium 1 ampul 10/01/21 08:00 10/01/21 20:10 Ipratropium/Albuterol Sulfate 3 Ml Ampul.Neb IH 1 ampul TIDRT KIKE Administration Arformoterol Tartrate 15 mcg 10/01/21 20:00 10/02/21 10:02 Arformoterol 15 Mcg/2 Ml Nebu IH 15 mcg Q12HRT KIKE Administration Budesonide 0.5 mg 10/01/21 20:00 10/02/21 10:02 Budesonide 0.5 Mg/2 Ml Nebu IH 0.5 mg Q12HRT KIKE Administration Dextrose 0 ml 09/30/21 22:07 Dextrose 50% In Water (25gm) 50 Ml Syringe IV Q30MIN PRN Hypoglycemia Protocol Famotidine 20 mg 10/01/21 10:00 10/02/21 09:47 Famotidine 20 Mg Tab PO 20 mg BID KIKE Administration Ferrous Sulfate 325 mg 10/01/21 10:00 10/02/21 09:47 Ferrous Sulfate 325 Mg Tab PO 325 mg DAILY KIKE Administration Heparin Sodium (Porcine) 5,000 unit 10/01/21 06:00 10/02/21 13:58 Heparin 5,000 Unit/1 Ml Vial SUB-Q 5,000 unit Q8HR KIKE Administration Hydromorphone HCl 0.5 mg 09/30/21 22:07 Hydromorphone 1 Mg/1 Ml Inj IV Q3H PRN Pain , Severe (7-10) Insulin Human Isoph/Insulin Regular 15 unit 10/02/21 08:00 10/02/21 08:44 Insulin Nph/Regular 70/30 Inj SUB-Q 15 unit BIDDIAB KIKE Administration Insulin Human Lispro 0 unit 10/01/21 07:30 10/02/21 12:33 Insulin Lispro 100 Unit/Ml SUB-Q 4 unit ACHS KIKE Administration Protocol Methylprednisolone Sodium Succinate 40 mg 10/01/21 00:00 10/02/21 12:33 Methylprednisolone Sod Succinate 40 Mg/1 Ml Inj IV 40 mg Q6HR KIKE Administration Montelukast Sodium 10 mg 10/01/21 22:00 10/01/21 22:37 Montelukast 10 Mg Tab PO 10 mg QHS KIKE Administration Ondansetron HCl 4 mg 09/30/21 22:07 Ondansetron 4 Mg/2 Ml Inj IV Q8H PRN Nausea And Vomiting Oxycodone/Acetaminophen 1 tab 09/30/21 22:07 Oxycodone /Acetaminophen 5-325mg Tab PO Q6H PRN Pain, Moderate (4-6) Sodium Chloride 10 ml 10/01/21 10:00 10/02/21 09:48 Sodium Chloride 0.9% 10 Ml Flush Syringe IV 10 ml BID KIKE Administration Sodium Chloride 10 ml 09/30/21 22:07 Sodium Chloride 0.9% 10 Ml Flush Syringe IV PRN PRN LINE FLUSH Tramadol HCl 50 mg 09/30/21 22:10 Tramadol 50 Mg Tab PO Q6H PRN PAIN (1-3) Nutrition/Malnutrition Assess - Dietary Evaluation Nutrition/Malnutrition Findings: Nutrition Notes Start: 10/01/21 10:36 Freq: Status: Active Protocol: Document 10/01/21 10:36 JEROME (Rec: 10/01/21 11:15 JEROME [id number]) Nutrition Notes Need for Assessment generated from: MD Order,Education Initial or Follow up Assessment Other Pertinent Diagnosis SOB, Dyspnea, Asthma, hypoxia. Current Diet Cardiac/Consistent carbohydrates Diet ( since B 09/30). Labs/Tests 09/30: CO2 20, Glu 158. Pertinent Medications 10/01: Insulin, others nutritionally unremarkable. Height 5 ft 11 in Weight 93.44 kg [place] Body Weight (kg) 70.45 BMI 28.7 Weight Status Overweight Subjective/Other Information RD consult for nutrition education. Percent of energy/protein needs met: Prescribed C/CC Diet provides for energy/protein (1,977 Kcal /86 g) during LOS. Burn Absent Trauma Absent GI Symptoms None Food Allergy No Skin Integrity/Comment Clear, warm, dry. Minimum of two criteria No #1 Nutrition Diagnosis No nutrition diagnosis at this time Comments: Pt seems to be not a candidate for general nutrition education at the time. Is patient on ventilator? No Is Patient Ambulatory and/or Out of Bed Yes REE-([place] Jeor-ambulatory/OOB) [ 3.189 NUTR.MSJOOB] Kcal/Kg value to use for calculation 22 Approximate Energy Requirements Using 2055 kcal/Kg Calculation Used for Recommendations Kcal/kg Additional Notes Protein: 0.8-1 g/Kg; 56-70 g/ day (from IBW). Fluids: 1 ml/KLcal, or as per MD. Nutrition Intervention Change Diet Order: Continue Cardiac/Consistent carbohydrates Diet. Goal #1 Maintain body weight within +/ -3% of current BWt during LOS. Goal #2 EReach and maintain acceptable chemistry lab values during LOS. Follow-Up By: 10/08/21 Additional Comments Continue monitoring food tolerance, %PO intake of meals , Hydration, and BM.
[2021-10-02] MEDS: IPRATROPIUM/ALBUTEROL SULFATE 3 ML AMPUL.NEB IH SCH ×3 (15:16→21:30)
[2021-10-02] MEDS: MONTELUKAST 10 MG TAB PO SCH (22:05)
[2021-10-03] MEDS: methylPREDNISolone Sod Succinate 40 MG/1 ML INJ IV SCH ×2 (03:08→09:24)
[2021-10-03 05:40] VITALS: BP 109/59
[2021-10-03] MEDS: HEPARIN 5,000 UNIT/1 ML VIAL SUB-Q SCH (05:50)
[2021-10-03 06:41] LABS: BUN/Creatinine Ratio 23; Blood Urea Nitrogen 21 mg/dL (7-17); Calcium 10.2 mg/dL (8.4-10.2); Hemolysis Index 13
[2021-10-03] MEDS: INSULIN NPH/REGULAR 70/30 INJ SUB-Q SCH (08:37)
[2021-10-03] MEDS: INSULIN LISPRO 100 UNIT/ML SUB-Q SCH (08:37)
--- NOTE | 2021-10-03 09:02 | Discharge Summary ---
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 If you have worsening symptoms contact MD or go to the nearest emergency room as needed. Advised to comply with medications diet and follow-up visits Follow up with: PRIMARY CARE, [Primary Care Provider] - 7 Days Prescriptions: Fluticasone/Salmeterol [Advair Diskus 250-50 mcg] 1 puff IH BID #1 disk.w.dev Losartan [Cozaar] 50 mg PO QDAY #30 tablet glipiZIDE 10 mg PO BID #60 Famotidine [Pepcid] 20 mg PO BID #20 tablet Prednisone [predniSONE 10 mg (6-Day Pack, 21 Tabs)] 10 mg PO .TAPER #1 tab.ds.pk Montelukast [Singulair] 10 mg PO QHS #30 tablet Azithromycin [Zithromax Z-KYLE] 0 mg PO DAILY #1 tab
[2021-10-03] MEDS: BUDESONIDE 0.5 MG/2 ML NEBU IH SCH (09:03)
[2021-10-03] MEDS: IPRATROPIUM/ALBUTEROL SULFATE 3 ML AMPUL.NEB IH SCH (09:03)
[2021-10-03] MEDS: ARFORMOTEROL 15 MCG/2 ML NEBU IH SCH (09:03)
[2021-10-03] MEDS: FAMOTIDINE 20 MG TAB PO SCH (09:23)
[2021-10-03] MEDS: FERROUS SULFATE 325 MG TAB PO SCH (09:24)
== END 2021-10-03 11:43 | disposition home or self-care (01) ==
LOC: ED 19:01 → 3A 21:44
PROVIDERS: ADMIT Hospitalist; ATTEND Internal Medicine
DX: J96.01 Acute respiratory failure with hypoxia (principal); J45.902 Unspecified asthma with status asthmaticus; E11.9 Type 2 diabetes mellitus without complications; E87.1 Hypo-osmolality and hyponatremia
CPT/HCPCS: 36415; 71045; 80048; 80053; 82805; 82962; 83036; 85025; 94640; 94644; 94760; 96365; 96372; 96375; 96376; 99291; G0378; J1100; J1644; J2920; J3475; 85007; J1815